=== PATIENT | female | born 1975 | race Caucasian/White ===

== ENCOUNTER 2021-08-30 13:29 | Emergency (ER) | payer OTHER ==
[2021-08-30 14:06] LABS: ABSOLUTE NEUTROPHILS 4.2 thou/uL (1.4-8.2); BASOPHILS 1.1 % (0.0-2.0); EOSINOPHILS 2.2 % (0.0-3.0); HEMATOCRIT 44.2 % (37.0-47.0); HEMOGLOBIN 14.8 gm/dL (12.0-15.0); LYMPHOCYTES 33.7 % (24.0-44.0); MCH 30.9 pg (26.0-34.0); MCHC 33.4 g/dL (28.0-37.0); MCV 92.3 fL (80.0-100.0); MONOCYTES 6.5 % (1.0-8.0); PLATELET COUNT 228 thou/uL (150-400); POLYS 56.5 % (36.0-66.0); RBC 4.79 mil/uL (4.20-5.00); RDW 13.9 % (10.5-14.5); WBC 7.5 thou/uL (4.0-11.0)
[2021-08-30 14:28] LABS: CALCIUM 8.6 mg/dL (8.5-10.1); CREATININE 0.8 mg/dL (0.6-1.0); POTASSIUM 3.9 mmol/L (3.5-5.1)
[2021-08-30 14:34] LABS: ALBUMIN 3.6 g/dL (3.4-5.0); TOTAL BILIRUBIN 0.4 mg/dL (0.2-1.0); TOTAL PROTEIN 6.7 g/dL (6.4-8.2)
[2021-08-30 15:58] LABS: URINE BILIRUBIN NEGATIVE (Negative); URINE BLOOD NEGATIVE (Negative); URINE CLARITY CLEAR; URINE COLOR YELLOW; URINE GLUCOSE-RANDOM* NEGATIVE (Negative); URINE KETONES NEGATIVE (Negative); URINE LEUKOCYTES-REFLEX NEGATIVE (Negative); URINE NITRITE-REFLEX NEGATIVE (Negative); URINE PROTEIN (DIPSTICK) NEGATIVE (Negative); URINE UROBILINOGEN 0.2 E.U./dl (0.2-1.0)
[2021-08-30] MEDS ORDERED: ZOFRAN ODT4 MG PO (16:51)
[2021-08-30 16:54] VITALS: BP 87/53
--- NOTE | 2021-08-31 11:17 | EKG ---
[address] [place] [address] ELECTROCARDIOGRAM REPORT Name: STEPHANIE HUI Room #: [facility] ML Mcdermott#: [id number] Admission: 08/30/21 Attend Phys: Discharge: 08/30/21 Date of : 73 Report #: [id number] [facility] ED Test Date: 2021-08-30 Test Time: 14:49:30 Pat Name: STEPHANIE HUI Department: Room: Gender: F [employer]: jshort1 : 1975 Requested By: Vinay Wilson Order Number: [id number] MD: Vasu Robertson Measurements Intervals [place] Rate: 69 P: 43 MD: 131 QRS: 76 QRSD: 90 T: 60 QT: 412 QTc: 442 Interpretive Statements Sinus rhythm No previous ECG available for comparison Electronically Signed On 08-31-2021 11:17:04 USED [employer]PRESENTATIVE by Vasu Robertson [email or web address] <ELECTRONICALLY SIGNED> By: Vasu Robertson MD 08/31/21 1117 [id number] [id number] Vasu Robertson MD /EPI
== END 2021-08-30 17:02 | disposition home or self-care (01) ==
LOC: ER 13:29
PROVIDERS: Physician Assistant
DX: R11.2 Nausea with vomiting, unspecified (principal); Z20.822 Contact with and (suspected) exposure to COVID-19; R10.11 Right upper quadrant pain; Z88.5 Allergy status to narcotic agent; Z88.0 Allergy status to penicillin; Z88.2 Allergy status to sulfonamides

== ENCOUNTER 2021-09-04 16:30 | Emergency (ER) | payer OTHER ==
[~2021-09-04] VITALS: Ht 160 cm; Wt 70.8 kg
[~2021-09-04 16:30] MED LIST: ZOFRAN ODT4 MG PO
[2021-09-04 22:03] VITALS: BP 106/59
== END 2021-09-04 22:04 | disposition home or self-care (01) ==
LOC: ER 16:30
DX: G43.909 Migraine, unspecified, not intractable, without status migrainosus (principal); F41.9 Anxiety disorder, unspecified; F17.200 Nicotine dependence, unspecified, uncomplicated; F12.90 Cannabis use, unspecified, uncomplicated; Z79.899 Other long term (current) drug therapy; Z88.5 Allergy status to narcotic agent; Z88.0 Allergy status to penicillin; Z88.2 Allergy status to sulfonamides; Z88.8 Allergy status to other drugs, medicaments and biological substances